=== PATIENT | male | born 1995 | race Two or more races ===

== ENCOUNTER 2020-01-28 14:02 | Emergency (ER) | payer SELFPAY ==
[~2020-01-28] VITALS: Ht 177.8 cm; Wt 95.3 kg
[2020-01-28] MEDS ORDERED: HYDROmorphone 1 MG/ML, 1ML INJ ONE (14:26)
[2020-01-28] MEDS ORDERED: ONDANSETRON 2MG/ML, 2ML ONE (14:26)
[2020-01-28] MEDS ORDERED: ONDANSETRON 2MG/ML, 2ML IVPush ONE (14:30)
[2020-01-28] MEDS ORDERED: HYDROmorphone 2 MG/ML, 1ML IVPush PRN (14:30)
[2020-01-28] MEDS ORDERED: SODIUM CHLORIDE FLUSH 10ML SYR IVF ONE (14:30)
--- NOTE | 2020-01-28 14:33 | NUR ---
PIV PLACED BY SUPERVISOR STAGE CARPENTRY, UNABLE TO DRAW LABS. LAB AT BEDSIDE FOR LAB DRAWN..
--- NOTE | 2020-01-28 14:37 | NUR ---
MEDS ADMIN PER JUL. PT CONNECTED TO MONITORING. FAMILY AT BEDSIDE TOURIST ESCORT.
[2020-01-28 14:45] LABS: BASOPHILS # (AUTO) 0.04 x10^3/uL (0-0.1); BASOPHILS % (AUTO) 1 % (0-1); EOSINOPHILS % (AUTO) 5 % (1-7); LYMPHOCYTES # (AUTO) 2.07 x10^3/uL (1-3.4); LYMPHOCYTES % (AUTO) 27 % (22-44); MD NO; MEAN CORPUSCULAR HEMOGLOBIN 30.2 pg (27.5-34.5); MEAN CORPUSCULAR HGB CONC 33.2 g/dL (33.2-36.2); MEAN CORPUSCULAR VOLUME 90.9 fL (81-97); MEAN PLATELET VOLUME 10.5 fL (7.4-10.4); MONOCYTES # (AUTO) 0.77 x10^3/uL (0.2-0.8); MONOCYTES % (AUTO) 10 % (2-9); NEUTROPHILS # (AUTO) 4.45 x10^3/uL (1.8-6.8); NEUTROPHILS % (AUTO) 58 % (42-75); PLATELET COUNT 223 x10^3/uL (130-400); RED BLOOD COUNT 5.94 x10^6/uL (4.38-5.82); RED CELL DISTRIBUTION WIDTH 12.4 % (9.4-14.8)
--- NOTE | 2020-01-28 14:49 | NUR ---
PT AMBULATED TO RESTROOM WITH STEADY GAIT TO PROVIDE URINE SAMPLE. UA COLLECTED AND SENT TO LAB.
[2020-01-28 14:57] LABS: ALANINE AMINOTRANSFERASE 46 U/L (12-78); ALBUMIN 3.7 g/dL (3.4-5.0); ANION GAP 5 mmol/L (5-15); CALCIUM 8.6 mg/dL (8.5-10.1); CHLORIDE 109 mmol/L (98-107); CREATININE 1.15 mg/dL (0.7-1.3)
[2020-01-28 14:59] LABS: ALKALINE PHOSPHATASE 112 U/L (45-117); BILIRUBIN,TOTAL 0.4 mg/dL (0.2-1.0); TOTAL PROTEIN 7.8 g/dL (6.4-8.2)
--- NOTE | 2020-01-28 15:04 | NUR ---
PT STATES PAIN IS BETTER AFTER PAIN MEDS.
[2020-01-28 15:05] LABS: MICROSCOPIC INDICATED
--- NOTE | 2020-01-28 15:39 | NUR ---
PT AT CT
--- NOTE | 2020-01-28 16:08 | NUR ---
Jj gilbert in ED - 01/28/20 at 1640 by DALLIN AFTER COMBIVENT PT STATES HER LUNGS "FEEL A LITTLE BIT BETTER, JUST A LITTLE THOUGH."
[2020-01-28] MEDS ORDERED: OMNIPAQUE 350 MG/ML, 100ML BOTTLE ONE (16:12)
[2020-01-28 16:22] VITALS: BP 128/85
--- NOTE | 2020-01-28 16:23 | NUR ---
ALL RESULTS ARE BACK AT THIS TIME. CHART UP FOR RECHECK.
== END 2020-01-28 17:12 | disposition home or self-care (01) ==
LOC: ED 16:45
DX: R10.31 Right lower quadrant pain (principal); Z87.891 Personal history of nicotine dependence
CPT/HCPCS: 36415; 74177; 80053; 81001; 83690; 85025; 96374; 96375; 99285; J1170; J2405; Q9967